=== PATIENT | female | born 1985 | race African-American/Black ===

== ENCOUNTER 2017-04-26 14:40 | Emergency (ER) | payer MEDICAID ==
[~2017-04-26] VITALS: Ht 165.1 cm; Wt 90.0 kg
[~2017-04-26 14:40] MED LIST: PREN-55 PO; PREN-88 PO
[2017-04-26] MEDS ORDERED: ONDANSETRON HCL 4MG/2ML VIAL IV STA (15:48)
[2017-04-26] MEDS ORDERED: KETOROLAC 30MG/ML VIAL IV STA (15:48)
[2017-04-26] MEDS ORDERED: SODIUM CHLORIDE 0.9% 1,000 ML IV ONE (15:48)
[2017-04-26 16:24] LABS: HEMATOCRIT. 40.7 % (36.0-48.0); HEMOGLOBIN. 13.9 g/dL (12.0-16.0); MEAN CORPUSCULAR HEMOGLOBIN 29.8 pg (28.0-32.0); MEAN CORPUSCULAR VOLUME 87.2 fL (81.0-99.0); MEAN PLATELET VOLUME 8.3 fl (7.4-10.4); PLATELET 255 x1000/uL (130-400); PROTHROMBIN TIME 10.9 sec; RED BLOOD CELL COUNT 4.66 mill/uL (4.2-5.4); RED CELL DISTRIBUTION WIDTH 14.1 % (11.6-14.6)
[2017-04-26 16:28] LABS: CARBON DIOXIDE 26 mEq/L (21-32); CHLORIDE 104 mEq/L (98-107)
[2017-04-26 16:55] LABS: ATYPICAL LYMPHOCYTES 1; PLATELET ESTIMATE NORMAL
[2017-04-26 17:09] LABS: CLARITY URINE CLEAR (CLEAR); COLOR URINE YELLOW (YELLOW); GLUCOSE URINE NEGATIVE (NEGATIVE); KETONES URINE 2+ (NEGATIVE); LEUKOCYTE ESTERASE URINE NEGATIVE (NEGATIVE); NITRITE URINE NEGATIVE (NEGATIVE); OCCULT BLOOD URINE TRACE (NEGATIVE); PH URINE 8.5 (4.5-8.0); PROTEIN URINE TRACE (NEGATIVE); SPECIFIC GRAVITY URINE 1.012 (1.005-1.030); UROBILINOGEN URINE 0.2 E.U./dL (0.2-1.0)
[2017-04-26 17:25] LABS: *AMPHETAMINES SCREEN URINE NEGATIVE (NEGATIVE); *BARBITURATES SCREEN URINE NEGATIVE (NEGATIVE); *BENZODIAZEPINES SCREEN URINE NEGATIVE (NEGATIVE); *COCAINE SCREEN URINE NEGATIVE (NEGATIVE); METHADONE URINE SCREEN NEGATIVE (NEGATIVE); OPIATES URINE SCREEN NEGATIVE (NEGATIVE); PHENCYCLIDINE URINE SCREEN NEGATIVE (NEGATIVE)
[2017-04-26] MEDS ORDERED: ONDANSETRON HCL 4MG/2ML VIAL IV ONE (17:30)
[2017-04-26] MEDS ORDERED: MORPHINE SULFATE 4 MG/ML CPJ (NOT FOR IM USE) IV ONE ×2 (17:45→19:45)
[2017-04-26 17:52] LABS: CANNABINOID URINE SCREEN PRESUMTIVE POSITIVE (NEGATIVE)
[2017-04-26] MEDS ORDERED: METOCLOPRAMIDE HCL 10MG/2ML VIAL IV ONE (19:45)
[2017-04-26 20:45] VITALS: BP 115/58
== END 2017-04-26 20:45 | disposition home or self-care (01) ==
LOC: ER 14:40
DX: R10.31 Right lower quadrant pain (principal); R11.2 Nausea with vomiting, unspecified; N28.1 Cyst of kidney, acquired; Z97.5 Presence of (intrauterine) contraceptive device; J45.909 Unspecified asthma, uncomplicated
CPT/HCPCS: 36415; 74176; 80053; 80305; 81001; 81025; 83690; 85025; 85610; 96361; 96374; 96375; 96376; 99285; J1885; J2270; J2405; J2765; J7030

== ENCOUNTER 2017-10-15 09:58 | Emergency (ER) | payer MEDICAID ==
[~2017-10-15] VITALS: Ht 167.6 cm; Wt 107.0 kg
[2017-10-15] MEDS ORDERED: ONDANSETRON HCL 4MG/2ML VIAL IV STA (10:08)
[2017-10-15] MEDS ORDERED: FAMOTIDINE 20MG/2ML VIAL IV ONE (10:15)
[2017-10-15] MEDS ORDERED: SODIUM CHLORIDE 0.9% 1000ML BAG (SEPSIS BOLUS) IV ONE (10:15)
[2017-10-15] MEDS ORDERED: MORPHINE SULFATE 4 MG/ML CPJ (NOT FOR IM USE) IV ONE (10:30)
[2017-10-15 10:32] LABS: BASOPHILS % 0.5 % (0.0-2.0); EOSINOPHILS % 0.1 % (0.0-5.0); HEMOGLOBIN. 14.2 g/dL (12.0-16.0); LYMPHOCYTES % 9.1 % (20.0-50.0); MEAN CORPUSCULAR HEMOGLOBIN 30.2 pg (28.0-32.0); MONOCYTES % 4.4 % (2.0-8.0); NEUTROPHILS % 85.9 % (40.0-76.0); PLATELET 291 x1000/uL (130-400); RED BLOOD CELL COUNT 4.72 mill/uL (4.2-5.4); RED CELL DISTRIBUTION WIDTH 13.9 % (11.6-14.6)
[2017-10-15 10:35] LABS: CHLORIDE 106 mEq/L (98-107)
[2017-10-15 10:39] LABS: INR 1.1; PROTHROMBIN TIME 10.9 sec (9.4-11.6)
[2017-10-15 10:40] LABS: CARBON DIOXIDE 27 mEq/L (21-32)
[2017-10-15] MEDS ORDERED: MORPHINE SULFATE 2 MG/ML CPJ (NOT FOR IM USE) IV ONE (10:44)
[2017-10-15 10:47] LABS: CLARITY URINE CLEAR (CLEAR); COLOR URINE ORANGE (YELLOW); GLUCOSE URINE NEGATIVE (NEGATIVE); KETONES URINE 1+ (NEGATIVE); LEUKOCYTE ESTERASE URINE NEGATIVE (NEGATIVE); NITRITE URINE NEGATIVE (NEGATIVE); OCCULT BLOOD URINE 3+ (NEGATIVE); PH URINE >=9.0 (4.5-8.0); PROTEIN URINE 1+ (NEGATIVE); SPECIFIC GRAVITY URINE 1.013 (1.005-1.030); UROBILINOGEN URINE 0.2 E.U./dL (0.2-1.0)
[2017-10-15 10:48] LABS: HCG SCREEN NEGATIVE
[2017-10-15] MEDS ORDERED: CEFTRIAXONE 1 G PREMIX 50 ML IV ONE (12:30)
[2017-10-15] MEDS ORDERED: MIDAZOLAM HCL 2 MG/2 ML VIAL IV ONE (12:45)
[2017-10-15] MEDS ORDERED: VISCOUS LIDOCAINE 2% 15 ML UDC MM STA (12:47)
[2017-10-15] MEDS ORDERED: MAGNESIUM/ALUMINUM HYDROXIDE/SIMETHICONE 30ML UDC PO ONE (13:00)
[2017-10-15 14:33] VITALS: BP 192/107
== END 2017-10-15 14:40 | disposition home or self-care (01) ==
LOC: ER 10:13 → EDBEDREQ 10:33 → ER 14:40 → CANBEDREQ 16:12
DX: R19.7 Diarrhea, unspecified (principal); R03.0 Elevated blood-pressure reading, without diagnosis of hypertension; R11.2 Nausea with vomiting, unspecified; E66.01 Morbid (severe) obesity due to excess calories; Z68.38 Body mass index [BMI] 38.0-38.9, adult; J45.909 Unspecified asthma, uncomplicated
CPT/HCPCS: 36415; 71010; 74176; 80053; 81001; 83605; 83690; 84703; 85025; 85610; 87040; 87086; 93005; 96361; 96365; 96375; 99285; J0696; J2250; J2270; J2405; J3490; J7030; J7040; Z7610

== ENCOUNTER 2018-11-22 09:28 | Emergency (ER) | payer MEDICAID ==
[~2018-11-22] VITALS: Ht 172.7 cm; Wt 106.0 kg
[2018-11-22] MEDS ORDERED: ONDANSETRON HCL 4MG/2ML INJ IV STA (11:37)
[2018-11-22] MEDS ORDERED: SODIUM CHLORIDE 0.9% 1,000 ML IV ONE ×2 (11:37→14:30)
[2018-11-22] MEDS ORDERED: DIPHENHYDRAMINE 50MG/ML VIAL IV ONE (11:45)
[2018-11-22 13:09] LABS: HEMATOCRIT. 43.4 % (36.0-48.0); HEMOGLOBIN. 14.9 g/dL (12.0-16.0); MEAN CORPUSCULAR HEMOGLOBIN 31.7 pg (28.0-32.0); MEAN CORPUSCULAR VOLUME 92.5 fL (81.0-99.0); MEAN PLATELET VOLUME 8.5 fl (7.4-10.4); PLATELET 244 x1000/uL (130-400); RED BLOOD CELL COUNT 4.69 mill/uL (4.2-5.4); RED CELL DISTRIBUTION WIDTH 12.2 % (11.6-14.6)
[2018-11-22 13:18] LABS: CHLORIDE 108 mEq/L (98-107)
[2018-11-22] MEDS ORDERED: MORPHINE SULFATE 4 MG/ML CPJ (NOT FOR IM USE) IV ONE ×2 (13:30→14:30)
[2018-11-22 13:34] LABS: PLATELET ESTIMATE NORMAL
[2018-11-22] MEDS ORDERED: ONDANSETRON HCL 4MG/2ML INJ IV ONE (14:30)
[2018-11-22] MEDS ORDERED: DIATR MEGLU/DIATRIZOATE SOLN 30ML ONE (15:22)
[2018-11-22 15:28] VITALS: BP 161/91
== END 2018-11-22 16:59 | disposition home or self-care (01) ==
LOC: ER 09:28
DX: K52.9 Noninfective gastroenteritis and colitis, unspecified (principal); R55 Syncope and collapse; J45.909 Unspecified asthma, uncomplicated
CPT/HCPCS: 36415; 80053; 81025; 83690; 85025; 96361; 96374; 96375; 96376; 99283; J1200; J2270; J2405; J7030; Q9963

== ENCOUNTER 2019-06-28 08:47 | Emergency (ER) | payer MEDICAID ==
[~2019-06-28] VITALS: Ht 170.2 cm; Wt 80.0 kg
[2019-06-28] MEDS ORDERED: MORPHINE SULFATE 4 MG/ML CPJ (NOT FOR IM USE) IV STA (09:21)
[2019-06-28] MEDS: SODIUM CHLORIDE 0.9% 1,000 ML IV ONE ×2 (09:21→09:57)
[2019-06-28] MEDS ORDERED: FAMOTIDINE 20MG/2ML VIAL IV STA (09:21)
[2019-06-28] MEDS ORDERED: ONDANSETRON HCL 4MG/2ML INJ IV STA (09:21)
[2019-06-28 10:51] LABS: CLARITY URINE CLEAR (CLEAR); COLOR URINE YELLOW (YELLOW); KETONES URINE 1+ (NEGATIVE); LEUKOCYTE ESTERASE URINE NEGATIVE (NEGATIVE); NITRITE URINE NEGATIVE (NEGATIVE); OCCULT BLOOD URINE 1+ (NEGATIVE); PROTEIN URINE NEGATIVE (NEGATIVE); UROBILINOGEN URINE 0.2 E.U./dL (0.2-1.0)
[2019-06-28 10:53] LABS: PROTHROMBIN TIME 10.7 sec (9.6-11.0)
[2019-06-28 10:54] LABS: CHLORIDE 107 mEq/L (98-107)
[2019-06-28 10:59] LABS: HEMATOCRIT. 40.9 % (36.0-48.0); HEMOGLOBIN. 14.2 g/dL (12.0-16.0); MEAN CORPUSCULAR HEMOGLOBIN 32.8 pg (28.0-32.0); MEAN CORPUSCULAR VOLUME 94.1 fL (81.0-99.0); MEAN PLATELET VOLUME 8.9 fl (7.4-10.4); PLATELET 259 x1000/uL (130-400); RED BLOOD CELL COUNT 4.34 mill/uL (4.2-5.4); RED CELL DISTRIBUTION WIDTH 12.1 % (11.6-14.6)
[2019-06-28] MEDS ORDERED: POTASSIUM CHLORIDE 20MEQ TABLET SR PO NR (11:15)
[2019-06-28 11:52] LABS: PLATELET ESTIMATE NORMAL
[2019-06-28] MEDS ORDERED: KETOROLAC 15MG/ML VIAL IV ONE (12:15)
[2019-06-28 12:45] VITALS: BP 100/94
== END 2019-06-28 12:50 | disposition home or self-care (01) ==
LOC: ER 08:47
DX: K29.70 Gastritis, unspecified, without bleeding (principal); N28.1 Cyst of kidney, acquired; J45.909 Unspecified asthma, uncomplicated
CPT/HCPCS: 36415; 74176; 80053; 81003; 81025; 83605; 83690; 85025; 85610; 96374; 96375; 99284; J1885; J2270; J2405; J3490; J7030

== ENCOUNTER 2019-08-07 15:15 | Emergency (ER) | payer MEDICAID ==
[~2019-08-07] VITALS: Ht 162.6 cm; Wt 91.0 kg
[2019-08-07 15:21] VITALS: BP 198/94
== END 2019-08-07 15:50 | disposition left against medical advice (07) ==
LOC: ER 15:49
DX: Z53.21 Procedure and treatment not carried out due to patient leaving prior to being seen by health care provider (principal)

== ENCOUNTER 2024-01-31 09:24 | Emergency (ER) | payer MEDICAID ==
[~2024-01-31] VITALS: Ht 162.6 cm; Wt 90.0 kg
[2024-01-31 09:34] VITALS: BP 164/79; PULSE 68; RESP 20; TEMP 98.4; O2SAT 99
== END 2024-01-31 12:04 | disposition left against medical advice (07) ==
LOC: ER 09:24
DX: R05.9 Cough, unspecified (principal); Z53.21 Procedure and treatment not carried out due to patient leaving prior to being seen by health care provider
CPT/HCPCS: 99281

== ENCOUNTER 2024-03-07 20:47 | Emergency (ER) | payer MEDICAID, OTHER ==
[~2024-03-07] VITALS: Ht 160 cm; Wt 114.3 kg
[2024-03-07 21:22] VITALS: O2SAT 100
[2024-03-07] MEDS: KETOROLAC 15MG/ML VIAL IM ONE (22:53)
[2024-03-08] MEDS ORDERED: NAPR-1176 MT (00:12)
[2024-03-08] MEDS ORDERED: LIDO700A15 TP (00:14)
[2024-03-08 00:26] VITALS: BP 164/90; PULSE 72; RESP 18; TEMP 98.5
== END 2024-03-08 00:28 | disposition home or self-care (01) ==
LOC: ER 20:47
DX: S60.222A Contusion of left hand, initial encounter (principal); S05.12XA Contusion of eyeball and orbital tissues, left eye, initial encounter; J45.909 Unspecified asthma, uncomplicated; D57.1 Sickle-cell disease without crisis; Z90.89 Acquired absence of other organs; Z98.890 Other specified postprocedural states; Y08.89XA Assault by other specified means, initial encounter; Y93.89 Activity, other specified; Y92.89 Other specified places as the place of occurrence of the external cause; Y99.8 Other external cause status
CPT/HCPCS: 99283; 81025; 73130; 96372; J1885

== ENCOUNTER 2024-08-19 22:01 | Emergency (ER) | payer MEDICAID ==
[~2024-08-19] VITALS: Ht 160 cm; Wt 120.5 kg
[~2024-08-19 22:01] MED LIST changes: +LIDO700A15 TP; +NAPR-1176 MT; -PREN-55 PO; -PREN-88 PO
[2024-08-19 22:12] VITALS: O2SAT 100
[2024-08-19 22:18] VITALS: BP 158/125; PULSE 58; RESP 24; TEMP 98.6; O2SAT 100
[2024-08-19 23:28] LABS: BASOPHILS % 0.6 % (0.0-2.0); EOSINOPHILS % 2.5 % (0.0-5.0); HEMATOCRIT. 38.3 % (36.0-48.0); LYMPHOCYTES % 31.5 % (20.0-50.0); MEAN CORPUSCULAR HEMOGLOBIN 32.3 pg (28.0-32.0); MEAN CORPUSCULAR HGB CONC 33.9 g/dL (31.0-37.0); MEAN PLATELET VOLUME 8.2 fl (7.4-10.4); MONOCYTES % 10.7 % (2.0-8.0); NEUTROPHILS % 54.7 % (40.0-76.0); PLATELET 257 x1000/uL (130-400); RED BLOOD CELL COUNT 4.03 mill/uL (4.2-5.4); RED CELL DISTRIBUTION WIDTH 12.3 % (11.6-14.6); WHITE BLOOD COUNT 7.2 x1000/uL (4.5-11.0)
[2024-08-19 23:34] LABS: CHLORIDE 107 mEq/L (98-107); POTASSIUM 3.7 mEq/L (3.5-5.1); SODIUM 139 mEq/L (136-145)
[2024-08-19 23:35] LABS: CALCIUM 9.1 mg/dL (8.7-10.4); CARBON DIOXIDE 28 mEq/L (21-32)
[2024-08-19 23:36] LABS: D-DIMER 0.77 mg/L FEU (<0.50); INR 0.9; PROTHROMBIN TIME 10.4 sec (9.6-11.0)
[2024-08-19 23:40] LABS: CREATININE 0.9 mg/dL (0.6-1.0); GLUCOSE 100 mg/dL (70-105); UREA NITROGEN BLOOD 14 mg/dL (9-23)
[2024-08-20 00:04] LABS: TROPONIN I HIGH SENSITIVITY < 4 ng/L (3.0-34)
== END 2024-08-20 01:30 | disposition left against medical advice (07) ==
LOC: ER 22:01
DX: R06.02 Shortness of breath (principal); Z53.21 Procedure and treatment not carried out due to patient leaving prior to being seen by health care provider
CPT/HCPCS: 36415; 71045; 80048; 84484; 85025; 85379; 93005

== ENCOUNTER 2025-05-02 08:01 | Inpatient (IN) | payer MEDICAID, OTHER ==
[~2025-05-02] VITALS: Ht 160 cm; Wt 108.4 kg
[~2025-05-02 08:01] MED LIST changes: +LIDO-53 TP; -LIDO700A15 TP
[2025-05-02] MEDS ORDERED: MORPHINE SULFATE 4 MG/ML INJ (FOR IV/IM USE) IV ONE (08:30)
[2025-05-02] MEDS ORDERED: ONDANSETRON HCL 4MG/2ML INJ IV ONE (08:30)
[2025-05-02] MEDS: ONDANSETRON 4MG ODT PO ONE (08:32)
[2025-05-02] MEDS: IBUPROFEN 600MG TABLET PO ONE (08:32)
[2025-05-02 08:49] LABS: BASOPHILS % 0.3 % (0.0-2.0); CHLORIDE 99 mEq/L (98-107); EOSINOPHILS % 0.2 % (0.0-5.0); HEMATOCRIT. 43.9 % (36.0-48.0); HEMOGLOBIN. 15.2 g/dL (12.0-16.0); LYMPHOCYTES % 12.6 % (20.0-50.0); MEAN CORPUSCULAR HGB CONC 34.7 g/dL (31.0-37.0); MEAN CORPUSCULAR VOLUME 92.3 fL (81.0-99.0); MEAN PLATELET VOLUME 8.1 fl (7.4-10.4); MONOCYTES % 10.2 % (2.0-8.0); NEUTROPHILS % 76.7 % (40.0-76.0); PLATELET 310 x1000/uL (130-400); POTASSIUM 3.3 mEq/L (3.5-5.1); RED BLOOD CELL COUNT 4.76 mill/uL (4.2-5.4); RED CELL DISTRIBUTION WIDTH 12.1 % (11.6-14.6); SODIUM 137 mEq/L (136-145); WHITE BLOOD COUNT 8.5 x1000/uL (4.5-11.0)
[2025-05-02 08:50] LABS: CALCIUM 10.1 mg/dL (8.7-10.4); CARBON DIOXIDE 30 mEq/L (21-32)
[2025-05-02 08:50] LABS: CLARITY URINE CLEAR (CLEAR); COLOR URINE YELLOW (YELLOW); GLUCOSE URINE NEGATIVE (NEGATIVE); KETONES URINE 3+ (NEGATIVE); LEUKOCYTE ESTERASE URINE TRACE (NEGATIVE); NITRITE URINE NEGATIVE (NEGATIVE); OCCULT BLOOD URINE 3+ (NEGATIVE); PH URINE 6.5 (4.5-8.0); PROTEIN URINE 1+ (NEGATIVE); SPECIFIC GRAVITY URINE 1.017 (1.005-1.030)
[2025-05-02 08:55] LABS: CREATININE 0.9 mg/dL (0.6-1.0); GLUCOSE 116 mg/dL (70-105)
[2025-05-02 08:56] LABS: UREA NITROGEN BLOOD 9 mg/dL (9-23)
[2025-05-02 08:57] LABS: ALANINE AMINOTRANSFERASE 18 IU/L (10-49); ALBUMIN 4.9 g/dL (3.2-4.8); ASPARTATE AMINOTRANSFERASE 16 IU/L (<34); BILIRUBIN DIRECT 0.2 mg/dL (<=3.0)
[2025-05-02 08:58] LABS: BILIRUBIN TOTAL 0.6 mg/dL (0.1-1.0); HCG SCREEN NEGATIVE; PROTEIN TOTAL 7.7 g/dL (6.0-8.3)
[2025-05-02 09:08] LABS: MUCUS URINE 1+ /lpf (< = 2+); SQUAMOUS EPITHELIAL CELL URINE 1+ /lpf (RARE/1+)
[2025-05-02 09:10] LABS: BACTERIA URINE TRACE; WBC URINE 0-2 /hpf (0-2)
[2025-05-02] MEDS: ONDANSETRON HCL 4MG/2ML INJ IV NR (09:36)
[2025-05-02] MEDS: MORPHINE SULFATE 4 MG/ML INJ (FOR IV/IM USE) IV NR (09:37)
[2025-05-02] MEDS: LACTATED RINGERS 1,000 ML IV SCH (09:37)
[2025-05-02 10:50] VITALS: BP 134/94; PULSE 77; RESP 16; TEMP 36.2
[2025-05-02 12:00] VITALS: BP 134/94; PULSE 77; RESP 18; TEMP 36.2; O2SAT 99
[2025-05-02] MEDS ORDERED: ONDANSETRON HCL 4MG/2ML INJ IV PRN (13:00)
[2025-05-02] MEDS ORDERED: KETOROLAC 30MG/ML VIAL IV PRN (13:00)
[2025-05-02] MEDS: PANTOPRAZOLE 40MG DR TABLET PO SCH (15:06)
[2025-05-02 16:00] VITALS: BP 118/82; PULSE 78; RESP 20; TEMP 36.3; O2SAT 95
[2025-05-02 16:43] LABS: HEPATITIS B SURFACE ANTIGEN NEGATIVE (Negative)
[2025-05-02 17:04] LABS: HEPATITIS C AB NON REACTIVE (Neg) (Negative)
[2025-05-02 20:00] VITALS: BP 132/87; PULSE 86; RESP 18; TEMP 36.6; O2SAT 97
[2025-05-03] VITALS: BP 106/68; PULSE 92; RESP 18; TEMP 36.7; O2SAT 98
[2025-05-03 04:00] VITALS: BP 124/83; PULSE 69; RESP 18; TEMP 36.2; O2SAT 96
[2025-05-03 08:00] VITALS: BP 133/93; PULSE 66; RESP 18; TEMP 36.8; O2SAT 98
[2025-05-03 12:00] VITALS: BP 131/103; PULSE 72; RESP 18; TEMP 36.7; O2SAT 95
[2025-05-03] MEDS: POTASSIUM CHLORIDE 20MEQ TABLET SR PO SCH (12:13)
[2025-05-03 12:18] VITALS: BP 131/103; PULSE 72; TEMP 98; O2SAT 95
== END 2025-05-03 12:38 | disposition home or self-care (01) | DRG 249 ==
LOC: ER 08:01 → 8EST 09:22 → EDBEDREQ 09:28
PROVIDERS: ADMIT Internal Medicine; ATTEND Internal Medicine
DX: K52.9 Noninfective gastroenteritis and colitis, unspecified (principal); E66.9 Obesity, unspecified; J45.909 Unspecified asthma, uncomplicated; Z90.49 Acquired absence of other specified parts of digestive tract; Z68.41 Body mass index [BMI] 40.0-44.9, adult
CPT/HCPCS: 36415; 74176; 80048; 80076; 81003; 84703; 85025; 86705; 87340; 99285; J2270; J2405; Q0162

== ENCOUNTER 2025-09-20 10:52 | Emergency (ER) | payer MEDICAID ==
[~2025-09-20] VITALS: Ht 167.6 cm; Wt 105.0 kg
[2025-09-20 11:06] VITALS: BP 184/118; PULSE 105; RESP 18; TEMP 36.9; O2SAT 100
[2025-09-20 11:41] LABS: HEMATOCRIT. 42.2 % (36.0-48.0); HEMOGLOBIN. 14.3 g/dL (12.0-16.0); MEAN PLATELET VOLUME 7.8 fl (7.4-10.4); PLATELET 261 x1000/uL (130-400); RED BLOOD CELL COUNT 4.42 mill/uL (4.2-5.4); RED CELL DISTRIBUTION WIDTH 12.8 % (11.6-14.6)
[2025-09-20 12:03] LABS: LYMPHOCYTES % MANUAL 11.0 % (20.0-60.0); MONOCYTES % MANUAL 2.0 % (2.0-8.0); NEUTROPHILS % MANUAL 87.0 % (45.0-75.0); PLATELET ESTIMATE NORMAL
[2025-09-20 12:05] LABS: CREATININE 0.7 mg/dL (0.6-1.0); UREA NITROGEN BLOOD 8 mg/dL (9-23)
[2025-09-20 12:07] LABS: ASPARTATE AMINOTRANSFERASE 19 IU/L (<34); BILIRUBIN DIRECT 0.1 mg/dL (<=3.0); BILIRUBIN TOTAL 0.4 mg/dL (0.1-1.0); PROTEIN TOTAL 7.4 g/dL (6.0-8.3)
[2025-09-20] MEDS ORDERED: ONDANSETRON 4MG ODT PO ONE (13:45)
[2025-09-20] MEDS ORDERED: MORPHINE SULFATE 4 MG/ML INJ (FOR IV/IM USE) IM ONE (13:45)
== END 2025-09-20 19:42 | disposition home or self-care (01) ==
LOC: ER 10:52
DX: R11.2 Nausea with vomiting, unspecified (principal); J45.909 Unspecified asthma, uncomplicated; Z90.89 Acquired absence of other organs
CPT/HCPCS: 36415; 80048; 80076; 85025; 99283